=== PATIENT | male | born 1980 | race Two or more races ===

== ENCOUNTER 2020-07-19 22:28 | Emergency (ER) | payer MEDICAID ==
[~2020-07-19] VITALS: Ht 172.7 cm; Wt 77.1 kg
[2020-07-19 22:48] LABS: Basophils # (auto) 0.1 10 ^3/uL (0-0.2); Basophils % (auto) 1.1 % (0.0-2.0); Eosinophils # (auto) 0.1 10 ^3/uL (0-0.8); Eosinophils % (auto) 0.8 % (0.0-7.0); Hematocrit 42.8 % (41.0-53.0); Hemoglobin 15.5 g/dL (13.5-17.5); Lymphocytes # (auto) 3.5 10 ^3/uL (0.4-5.4); Lymphocytes % (auto) 31.3 % (10.0-50.0); Mean Corpuscular Hemoglobin 31.5 pg (28.0-32.0); Mean Corpuscular Hgb Conc. 36.2 g/dL (32.0-36.0); Mean Corpuscular Volume 87.1 fL (80.0-100.0); Monocytes # (auto) 1.2 10 ^3/uL (0-1.3); Monocytes % (auto) 10.7 % (0.0-12.0); Neutrophils # (auto) 6.3 10 ^3/uL (1.6-8.6); Neutrophils % (auto) 56.1 % (37.0-80.0); Red Blood Cells 4.91 10^6/uL (4.5-5.90); Red Cell Distribution Width 13.1 % (11.8-14.3); White Blood Cell 11.3 10^3/uL (4.4-10.8)
[2020-07-19 23:12] LABS: Albumin 3.8 g/dL (3.4-5.0); Anion Gap 7 (5-15); Blood Alcohol < 3.0 mg/dL (0-5); Blood Urea Nitrogen 23 mg/dL (7-18); Calcium 9.1 mg/dL (8.5-10.1); Carbon Dioxide 24 mmol/L (21-32); Chloride 105 mmol/L (98-107); Glucose 106 mg/dL (74-106); Magnesium 2.5 mg/dL (1.6-2.6); Potassium 3.9 mmol/L (3.5-5.1); Salicylate < 1.7 mg/dL (2.8-20.0); Sodium 136 mmol/L (136-145)
[2020-07-19 23:15] LABS: Acetaminophen < 2.0 ug/mL (10-30); Alanine Aminotransferase 50 U/L (16-61); Alkaline Phosphatase 85 U/L (45-117); Aspartate Aminotransferase 66 U/L (15-37); GFR African American 92 mL/min; GFR Non-African American 76 mL/min; Total Protein 8.6 g/dL (6.4-8.2)
[2020-07-20] MEDS ORDERED: SODIUM CHLORIDE 0.9% 1,000 ML IV ONE (09:15)
[2020-07-20 12:47] LABS: Urine Bacteria FEW /hpf (None Seen); Urine Blood Negative /uL (Negative); Urine Hyaline Cast MOD /lpf (0 - 2); Urine Mucus FEW (None Seen); Urine Specific Gravity 1.033 (1.001-1.035); Urine WBC 4 /hpf (0 - 3)
[2020-07-20 12:54] LABS: Amphetamine Screen, Urine POSITIVE (NEGATIVE); Barbiturate Scree,Urine NEGATIVE (NEGATIVE); Benzodiazephine Screen, Urine NEGATIVE (NEGATIVE); Cocaine Screen, Urine NEGATIVE (NEGATIVE); Opiate Scree,Urine NEGATIVE (NEGATIVE); Phencyclidine Screen, Urine POSITIVE (NEGATIVE)
[2020-07-20 13:03] LABS: Cannabinoid Screen, Urine POSITIVE (NEGATIVE)
[2020-07-20 13:45] VITALS: BP 112/61
== END 2020-07-20 15:14 | disposition home or self-care (01) ==
LOC: EDBD 22:28 → ER 22:31
DX: T40.1X1A Poisoning by heroin, accidental (unintentional), initial encounter (principal); Y92.89 Other specified places as the place of occurrence of the external cause
CPT/HCPCS: 36415; 80053; 80307; 80320; 80329; 81001; 83735; 85025; 93005; 96360; 99285; J7030